=== PATIENT | male | born 1950 | race Caucasian/White ===

== ENCOUNTER 2021-03-18 10:51 | Outpatient (CLI) | payer MEDICARE, OTHER, SELFPAY ==
[2021-03-18 11:17] VITALS: BMI 30.1
--- NOTE | 2021-03-18 11:17 | ECG_ITS ---
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 Interpretive Statements NAME OF STUDY: TREADMILL STRESS TEST INDICATION: [Chest Pain, ] EXERCISE DATA: The patient was exercised by Thomas protocol. Baseline heart rate was 73 beats per minute. Baseline blood pressure was 157/83 millimeters of mercury. Target heart rate was 129 beats per minute. Maximum heart rate achieved was 143 which was 110% of the target heart rate. Maximum blood pressure was 253/68 millimeters of mercury. Total exercise time was 6 minutes and 36 seconds. Maximum METs achieved was 10.2, maximum VO2 was 35.7. The reason for ending the test was completion of the protocol. ELECTROCARDIOGRAM: BASELINE: Showed sinus rhythm, normal axis, no significant ST-T changes at the baseline noted. [] EXERCISE: At the peak exercise level, [] No significant ST-T changes suggestive of ischemia noted. [] RECOVERY: During the recovery period, heart rate dropped appropriately. No significant ST-T changes in the recovery suggestive of ischemia noted. [] CONCLUSION: 1. Exercise capacity excellent. 2. Heart rate response was appropriate. 3. Blood pressure response was hypertensive 4. Symptoms not suggestive of ischemia. 5. Stress test was not suggestive of ischemia. Electronically Signed On 03-26-2021 13:45:36 CDT by Niko Mcintosh M.D. [id number]
[2021-03-18 11:48] VITALS: BP 159/87; PULSE 87
== END 2021-03-18 10:52 | disposition home or self-care (01) ==
LOC: CDL 10:53
PROVIDERS: PCP Family Medicine; Visit Provider Family Medicine
DX: R07.9 Chest pain, unspecified (principal)
CPT/HCPCS: 93017

== ENCOUNTER 2021-09-16 14:24 | Outpatient (CLI) | payer MEDICARE, OTHER, SELFPAY ==
[2021-09-16 07:02] VITALS: BMI 30.1
[2021-09-16 14:34] VITALS: BP 149/80; PULSE 72; RESP 17; TEMP 36.4; O2SAT 96
[2021-09-16 15:28] VITALS: BP 123/71; PULSE 69; RESP 17; TEMP 36.8; O2SAT 94
[2021-09-16 16:28] VITALS: BP 123/72; PULSE 65; RESP 17; TEMP 36.6; O2SAT 96
== END 2021-09-16 14:25 | disposition home or self-care (01) ==
LOC: OPS 14:29
PROVIDERS: PCP Family Medicine; Visit Provider Nurse Practitioner Family
DX: U07.1 COVID-19 (principal)
CPT/HCPCS: 96365

== ENCOUNTER → 2022-01-06 09:23 | Outpatient (BNVA) | payer MEDICARE, OTHER, SELFPAY | PROVIDERS: PCP Family Medicine; Visit Provider Family Medicine | DX: Z51.81 Encounter for therapeutic drug level monitoring (principal); E78.1 Pure hyperglyceridemia; Z13.220 Encounter for screening for lipoid disorders; E03.9 Hypothyroidism, unspecified; N39.0 Urinary tract infection, site not specified | CPT/HCPCS: 80053; 80061; 83721; 84439; 84443; 85025; 85651; 86140; 87086 ==

== ENCOUNTER → 2022-01-15 10:49 | Outpatient (BNVA) | payer MEDICARE, OTHER, SELFPAY | PROVIDERS: PCP Family Medicine; Referring Provider Family Medicine; Visit Provider Surgery | DX: Z12.11 Encounter for screening for malignant neoplasm of colon (principal) | CPT/HCPCS: 99024 ==

== ENCOUNTER 2022-02-12 08:11 | Outpatient (CLI) | payer MEDICARE, OTHER, SELFPAY ==
--- NOTE | 2022-02-12 08:21 | US_ITS ---
WS: [id number] RENAL ULTRASOUND HISTORY: URINARY RETENTION COMPARISON: None available. TECHNIQUE: 2-D and color Doppler imaging of the kidney submitted. Right kidney: 10.1 cm x 4.9 cm x 5.1 cm. Normal echogenicity with no hydronephrosis or mass. Left kidney: 10.4 cm x 5.9 cm x 3.9 cm. Normal echogenicity with no hydronephrosis or mass. Aorta: Normal. Urinary Bladder: Normal distention. Moderately enlarged prostate measures 4.4 x 5.1 x 4.2 cm. No intraluminal filling defect. US/US renal BI* [id number] IMPRESSION: Normal renal ultrasound. Mild prostate enlargement.
== END 2022-02-12 08:12 | disposition home or self-care (01) ==
LOC: RAD 08:14
PROVIDERS: PCP Family Medicine; Visit Provider Family Medicine
DX: N40.1 Benign prostatic hyperplasia with lower urinary tract symptoms (principal); R33.8 Other retention of urine
CPT/HCPCS: 76770

== ENCOUNTER 2022-05-13 05:58 | Day surgery (SDC) | payer MEDICARE, OTHER, SELFPAY ==
[2022-05-11 09:11] VITALS: BMI 28.7
--- NOTE | 2022-05-13 06:08 | PM.HP ---
Providers/Chief Complaint Primary Care Provider: Gerardo Christian MD Chief Complaint: encounter for screening for malignant neoplasm of History of Present Illness Raimundo Chen is a 71 year old male here for a screening colonoscopy. Review of Systems General: Reports: 10 or more systems reviewed and unremarkable except in HPI and below Medications/Allergies Home Medications Medication Instructions Recorded Confirmed Last Taken Type atorvastatin 10 mg tablet 10 mg PO DAILY 05/11/22 05/11/22 05/11/22 History gemfibrozil 600 mg tablet 600 mg PO DAILY 05/11/22 05/11/22 05/11/22 History ibuprofen 200 mg tablet (Advil) 200 mg PO Q6H PRN Pain 05/11/22 05/11/22 Unknown History levothyroxine 125 mcg tablet 125 mcg PO DAILY 05/11/22 05/11/22 05/11/22 History omega-3 fatty acids 1,000 mg PO DAILY 05/11/22 05/11/22 05/11/22 History Allergies Allergy/AdvReac Type Severity Reaction Status Date / Time No Known Allergies Allergy Verified 09/16/21 18:06 Vitals/I&O/Wt Weight last 48 hrs Weight 200 lb A&P Assessment and plan (1) Colon cancer screening: Status: Acute Plan Colonoscopy The risks and benefits of the procedure, including bleeding, infection, intestinal perforation requiring surgery, missed lesion, or explained to the patient. He is understanding of the risks and wishes to proceed. Attestations Medical Necessity Statement*: home Coding Level of Care Code Acute Line Maintenance Technician for Shana Fwamelia Diagnoses Colon cancer screening Z12.11
[2022-05-13 06:30] VITALS: BP 143/78; PULSE 60; RESP 18; TEMP 36.2; O2SAT 97
[2022-05-13] MEDS: sodium chloride 0.9% 1,000 ML 30 ML IV (06:41)
--- NOTE | 2022-05-13 07:12 | ANES.PREANE2 ---
Pre-Anesthetic Assessment Height/Weight: Height 1.78 m Weight 90.718 kg Temp Pulse Resp BP Pulse Ox O2 Del Method 97.1 F L 60 18 143/78 97 05/13/22 06:30 05/13/22 06:30 05/13/22 06:30 05/13/22 06:30 05/13/22 06:30 05/13/22 06:30 Preop Diagnosis: Screening colonoscopy Operation Date: 05/13/22 07:30 Proposed Procedures p Colonoscopy 04304/z12.11(Not Applicable) - Dereck Mir DO Familial anesthetic complications: None Was Beta Jasiel taken within 24 hours: N/A Was Clonidine taken within 24 hours: N/A Last intake: Intake Last Liquid Date 05/12/22 Last Liquid Time 22:00 Last Solid Date 05/11/22 Last Solid Time 19:30 Social No alcohol and No tobacco Exam alert, oriented x 3, clear to auscultation bilaterally and regular rate & rhythm Airway Submandibular: within normal limits Cervical ROM: within normal limits Mallampati: Class I Dentition: other Comments: Comments: Upper removable bridge History/ROS No significant complaints Pulmonary None reported Per spouse of patient has occasional apnea at night, no loud snoring CV/HEM None reported None reported Hepatic None reported GI Gastroesophageal Reflux Disease (Well controlled ) Metabolic Hyperlipidemia and Thyroid Disease [facility] [place] reported Neuropsych None reported Anesthetic Plan ASA status: 2 Anesthesia: Anesthesia Evaluation and General Other: We discussed risk and benefits of general anesthesia including PONV, sore throat (sometimes severe), corneal abrasion, positioning and peripheral nerve injuries, life threatening allergic reaction, post operative ICU admission requiring prolonged intubation, stroke, heart attack, , and rare incidences of recall. Patient consents to proceed with general anesthesia. Risk of > 500 ml blood loss (7ml/kg in children): No Medications/Allergies Home Medications Medication Instructions Recorded Confirmed Last Taken Type atorvastatin 10 mg tablet 10 mg PO DAILY 05/11/22 05/11/22 05/11/22 History gemfibrozil 600 mg tablet 600 mg PO DAILY 05/11/22 05/11/22 05/11/22 History ibuprofen 200 mg tablet (Advil) 200 mg PO Q6H PRN Pain 05/11/22 05/11/22 Unknown History levothyroxine 125 mcg tablet 125 mcg PO DAILY 05/11/22 05/11/2222 History omega-3 fatty acids 1,000 mg PO DAILY 05/11/22 05/11/22 05/11/22 History Allergies Allergy/AdvReac Type Severity Reaction Status Date / Time No Known Allergies Allergy Verified 09/16/21 18:06 Current Medications Generic Name Dose Route Start Last Admin Trade Name Freq PRN Reason Stop Dose Admin Sodium Chloride 1,000 mls @ 30 mls/hr 05/13/22 06:30 05/13/22 06:41 Sodium Chloride 0.9% IV 05/14/22 06:29 30 mls/hr .Q24H RICARDO Administration Data Anesthesia Cardiac Studies: No Data to Display
[2022-05-13 08:10] VITALS: BP 121/70; PULSE 56; RESP 14; TEMP 36.2; O2SAT 96
[2022-05-13 08:21] VITALS: BP 123/74; PULSE 58; RESP 16; O2SAT 96
[2022-05-13 08:29] VITALS: BP 128/70; PULSE 50; RESP 16; O2SAT 98
--- NOTE | 2022-05-13 13:52 | ANE.PACU2 ---
Inpatient post-anesthesia follow up: Airway intact: Yes Vital signs: Temperature 97.2 F Pulse Rate 50 Respiratory Rate 16 Blood Pressure 128/70 Pulse Oximetry 98 Oxygen Delivery Me thod Room Air Oxygen Flow Rate Fraction of Inspir ed Oxygen Hydration adequate: Yes Nausea and vomiting: No Pain level: 1 Mental status: Baseline
== END 2022-05-13 08:45 | disposition home or self-care (01) ==
PROVIDERS: PCP Family Medicine; Visit Provider Surgery
PROC: 0DJD8ZZ Inspection of Lower Intestinal Tract, Via Natural or Artificial Opening Endoscopic (ICD-10-PCS; CPT 45378; principal; 2022-05-13 07:30)
DX: Z12.11 Encounter for screening for malignant neoplasm of colon (principal); D12.2 Benign neoplasm of ascending colon; K21.9 Gastro-esophageal reflux disease without esophagitis; E78.5 Hyperlipidemia, unspecified
CPT/HCPCS: 45385; 88305; J2704; J3490; J7030

== ENCOUNTER → 2022-05-26 13:54 | Outpatient (BNVA) | payer MEDICARE, OTHER, SELFPAY | PROVIDERS: PCP Family Medicine; Visit Provider Surgery | DX: Z09 Encounter for follow-up examination after completed treatment for conditions other than malignant neoplasm (principal); D36.9 Benign neoplasm, unspecified site | CPT/HCPCS: 99212 ==

== ENCOUNTER → 2022-05-29 08:50 | Outpatient (BNVA) | payer MEDICARE, OTHER, SELFPAY | PROVIDERS: PCP Family Medicine; Visit Provider Family Medicine | DX: Z00.00 Encounter for general adult medical examination without abnormal findings (principal); Z13.220 Encounter for screening for lipoid disorders; E78.5 Hyperlipidemia, unspecified; E03.9 Hypothyroidism, unspecified; Z51.81 Encounter for therapeutic drug level monitoring; E78.1 Pure hyperglyceridemia; H53.009 Unspecified amblyopia, unspecified eye | CPT/HCPCS: 80053; 80061; 84439; 84443; 85025 ==

== ENCOUNTER → 2023-11-23 07:57 | Outpatient (BNVA) | payer MEDICARE, OTHER, SELFPAY | PROVIDERS: PCP Family Medicine; Visit Provider Family Medicine | DX: E03.9 Hypothyroidism, unspecified (principal); E78.5 Hyperlipidemia, unspecified; Z13.220 Encounter for screening for lipoid disorders; Z51.81 Encounter for therapeutic drug level monitoring; R35.0 Frequency of micturition | CPT/HCPCS: 80053; 80061; 84153; 84439; 84443; 85025 ==

== ENCOUNTER 2024-09-13 15:14 | Outpatient (CLI) | payer MEDICARE, OTHER, SELFPAY ==
--- NOTE | 2024-09-13 15:28 | USCV_ITS ---
Raimundo Chen Age: 73 Gender: M : 1950 Exam Date: 09/13/2024 15:35 Ordering Phys: Leatha Richardson O.D. Technologist: ANDREA [place] [facility] [place]: Transient loss of vision Risk Factors: Previous Vascular Surgery: Right Brachial BP: / Left Brachial BP: / Right Left Velocity (cm/s) Spectral Plaque Velocity (cm/s) Spectral Plaque Syst/Diast Broadening Syst/Diast Broadening 92.90/ 17.10 Prox CCA 115.70/ 20.50 112.00/19.20 Mid CCA 103.70/ 24.90 71.90/ 21.00 Distal CCA 88.00 / 24.90 51.20/ 11.80 Prox ICA 49.00 / 13.30 50.10/ 10.60 Mid ICA 50.50 / 14.90 49.00/ 11.80 Distal ICA 74.80 / 21.80 120.50 ECA 95.70 0.70 ICA/CCA 0.60 Antegrade Vertebral Antegrade 29.40/ 6.80 cm/s 31.10/ 4.30 cm/s Tri Subclavian Tri 132.1 76.50 0 CONCLUSIONS Right ICA stenosis <50%. Mild atheromatous plaque right carotid bulb/ICA. Left ICA stenosis <50%. Mild atheromatous plaque left carotid bulb/ICA. Intimal thickening in the common carotid arteries and internal carotid arteries bilaterally. Normal antegrade Doppler flow noted in the right vertebral artery. Normal antegrade Doppler flow noted in the left vertebral artery. Jovi Dykes MD (Electronically Signed) Final Date: 13 September 2024 16:34 S
== END 2024-09-13 15:15 | disposition home or self-care (01) ==
LOC: RAD 15:19
PROVIDERS: PCP Family Medicine; Visit Provider Optometrist
DX: I65.23 Occlusion and stenosis of bilateral carotid arteries (principal); R93.89 Abnormal findings on diagnostic imaging of other specified body structures
CPT/HCPCS: 93880

== ENCOUNTER → 2024-10-10 09:48 | Outpatient (BNVA) | payer MEDICARE, OTHER, SELFPAY | PROVIDERS: PCP Family Medicine; Visit Provider Family Medicine | DX: E03.9 Hypothyroidism, unspecified (principal); N40.0 Benign prostatic hyperplasia without lower urinary tract symptoms; Z13.6 Encounter for screening for cardiovascular disorders; Z51.81 Encounter for therapeutic drug level monitoring | CPT/HCPCS: 80053; 80061; 84153; 84439; 84443; 85025 ==

== ENCOUNTER → 2024-10-24 13:52 | Outpatient (BNVA) | payer MEDICARE, OTHER, SELFPAY | PROVIDERS: PCP Family Medicine; Visit Provider Dermatology | DX: L82.1 Other seborrheic keratosis (principal); D22.5 Melanocytic nevi of trunk; L81.4 Other melanin hyperpigmentation; D48.5 Neoplasm of uncertain behavior of skin; L57.0 Actinic keratosis | CPT/HCPCS: 11102; 17000; 99203 ==

== ENCOUNTER → 2024-10-26 10:22 | Outpatient (BNVA) | payer MEDICARE, OTHER, SELFPAY | PROVIDERS: PCP Family Medicine; Visit Provider Family Medicine | DX: G45.3 Amaurosis fugax (principal) | CPT/HCPCS: 85651 ==

== ENCOUNTER 2024-10-27 11:21 | Emergency (ER) | payer MEDICARE, OTHER, SELFPAY ==
[2024-10-27] VITALS (8 sets, daily range): BP systolic 131–177; BP diastolic 74–90; PULSE 63–86; RESP 15–24; TEMP 37.1; O2SAT 94–99; BMI 30.1
--- NOTE | 2024-10-27 11:38 | ECG_ITS ---
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 Measurements Intervals [place] Rate: 74 P: 68 [place]: 160 QRS: 54 QRSD: 81 T: 77 QT: 370 QTc: 413 Interpretive Statements SINUS RHYTHM No previous ECG available for comparison Electronically Signed On 10-28-2024 07:43:57 [employer] by Niko Mcintosh M.D. [email or web address] [id number]
--- NOTE | 2024-10-27 11:38 | CT_ITS ---
WS: [id number] CT HEAD TECHNIQUE: Noncontrast CT of the head obtained from the skullbase to the vertex. CLINICAL INFORMATION: Symptoms of acute stroke COMPARISON: None. DLP: [address] scans at [facility] use at least one of these dose optimization techniques: automated exposure control; mA and/or kV adjustment per patient size (includes targeted exams where dose is matched to clinical indication); or iterative reconstruction. FINDINGS: No evidence of intracranial hemorrhage or mass effect. Ventricular system and basal cisterns are patent. Mild small vessel changes with mild parenchymal volume loss. No extra-axial fluid collections. No evidence of mass or mass effect. Vascular calcification. Dystrophic calcification along the falx. Paranasal sinuses and mastoid air cells are well aerated. .Normal visualized soft tissues. CT/CT head thrombolytic [id number] IMPRESSION: 1. No evidence of intracranial hemorrhage or mass effect. 2. No acute intracranial findings. Notified Yossi Willis DO at 10/27/2024 11:53 AM.
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
[2024-10-27 11:42] LABS: Glucose Point of Care 126 mg/dL (70-110)
--- NOTE | 2024-10-27 12:05 | PC.PHAR ---
Verified medications with [facility]. Will ask pt if he took morning meds when the room clears.
[2024-10-27 12:23] LABS: Basophils # 0.1 10^3/uL (0.0-0.1); Basophils % 0.9 %; Eosinophils # 0.2 10^3/uL (0.0-0.8); Eosinophils % 2.7 %; Hematocrit 46.1 % (37-53); Lymphocytes # 1.9 10^3/uL (0.8-4.8); Lymphocytes % 28.6 %; Mean Corpuscular HGB Conc 34.9 g/dL (30-55); Mean Corpuscular Hemoglobin 31.6 pg (27-33); Mean Corpuscular Volume 90.4 fl (82-101); Mean Platelet Volume 10.7 fL (7.4-10.4); Monocytes # 0.7 10^3/uL (0.2-0.9); Monocytes % 10.2 %; Neutrophils # 3.77 10^3/uL (1.8-7.7); Neutrophils % 57.3 %; Nucleated Red Blood Cells % 0 %; Platelet Count 180 10^3/cmm (157-399); Red Cell Distribution Width 12.1 % (12.1-15.1); White Blood Count 6.58 10^3/uL (3.29-11.43)
[2024-10-27 12:27] LABS: Add Urine Microscopic? NO
[2024-10-27 12:30] LABS: INR 1.04 (0.8-1.2)
[2024-10-27 12:31] LABS: Partial Thromboplastin Time 26.5 SECONDS (23.9-36.7)
[2024-10-27 12:34] LABS: Bilirubin Urine Negative (Negative); Blood Urine Non-haemolysed trace (Negative); Glucose Urine UA Negative (Normal); Ketones Urine Negative (Negative); Leukocyte Esterase Urine Negative (Negative); Nitrate Urine Negative (Negative); Protein Urine Negative (Negative); Specific Gravity, Urine 1.021 (1.005-1.030); Urine Appearance Clear (CLEAR); Urine Color Yellow (Yellow)
[2024-10-27 12:35] LABS: Alanine Aminotransferase 21 U/L (0-41); Albumin Level 4.2 g/dL (3.5-5.2); Alkaline Phosphatase 62 U/L (40-130); Anion Gap 15.2 (5-19); Aspartate Amino Transferase 19 U/L (0-40); Blood Urea Nitrogen 15 mg/dL (8-23); Calcium 9.4 mg/dL (8.5-10.5); Carbon Dioxide 23 mmol/L (22-29); Chloride 104 mmol/L (98-107); Creatinine Clr Calc Pharmacy 98.1113; Glucose 133 mg/dL (65-115); Osmolality Calculated 289 mOsm/kg (285-295); Potassium 4.2 mmol/L (3.5-5.1); Sodium 138 mmol/L (136-145); Total Bilirubin 0.4 mg/dL (0.15-1.2); Total Protein 7.2 g/dL (6.6-8.7)
[2024-10-27 12:38] LABS: Charge for UA Resulting for Rev
[2024-10-27 12:44] LABS: Amphetamines Screen Urine Negative (Negative); Barbiturates Screen Urine Negative (Negative); Benzodiazepines Screen Urine Negative (Negative); Cocaine Screen Urine Negative (Negative); Opiate Screen Urine Negative (Negative); PCP Screen Urine Negative (Negative); THC Screen Urine Negative (Negative)
[2024-10-27] MEDS: clopidogrel 75 mg Tablet PO (13:55)
== END 2024-10-27 13:50 | disposition home or self-care (01) ==
PROVIDERS: Emergency Provider Family Medicine; PCP Family Medicine
DX: G45.9 Transient cerebral ischemic attack, unspecified (principal); Z79.82 Long term (current) use of aspirin
CPT/HCPCS: 36416; 70450; 80053; 80306; 81003; 82962; 85025; 85610; 85730; 93005; 99284

== ENCOUNTER 2024-10-31 14:53 | Outpatient (CLI) | payer MEDICARE, OTHER, SELFPAY ==
--- NOTE | 2024-10-31 15:02 | XR_ITS ---
WS: [id number] XR cervical spine min 6V [id number] REASON FOR EXAM: cervical radiculopathy FINDINGS: Normal lordosis. No compression deformity or focal vertebral body lesion. Normal odontoid. Moderate anterior and posterior osteophytosis C2-C7. Mild narrowing of the C3-C4 disc space. No significant neutral listhesis. No significant vertebral body movement with flexion and extension. Mild narrowing of the neural foramina on the right at C4-C5 and C5-C6. XR/XR cervical spine min 6V [id number] IMPRESSION: Degenerative spondylosis of the cervical spine as above.
== END 2024-10-31 14:54 | disposition home or self-care (01) ==
LOC: RAD 14:55
PROVIDERS: PCP Family Medicine; Visit Provider Family Medicine
DX: M54.12 Radiculopathy, cervical region (principal); M47.892 Other spondylosis, cervical region; R93.7 Abnormal findings on diagnostic imaging of other parts of musculoskeletal system
CPT/HCPCS: 72052

== ENCOUNTER 2024-11-07 08:41 | Outpatient (CLI) | payer MEDICARE, OTHER, SELFPAY ==
--- NOTE | 2024-11-07 07:00 | USCV_ITS ---
Raimundo Chen Age: 73 Gender: M : 1950 Exam Date: 11/07/2024 09:08 Ordering Phys: Gerardo Christian MD Technologist: Exam Location: [facility] – [place] Indication: Amaurosis Fugax BP: 130 / 80 HR: 69 Rhythm: Sinus Technical Quality: Adequate MEASUREMENTS (Male / Female) Normal Values 2D ECHO LV Diastolic Diameter PLAX 3.9 cm 4.2 - 5.9 / 3.9 - 5.3 cm IVS Diastolic Thickness 1.3 cm 0.6 - 1.0 / 0.6 - 0.9 cm IVS Systolic Thickness 1.8 cm LVPW Diastolic Thickness 1.5 cm 0.6 - 1.0 / 0.6 - 0.9 cm LVPW Systolic Thickness 1.9 cm LVOT Diameter 2.0 cm LV Ejection Fraction 2D Teich 65.9 % LV Ejection Fraction MOD 4C 56.7 % LV Ejection Fraction MOD 2C 62.0 % LV Ejection Fraction 2C AL 61.6 % LA Diameter 3.5 cm RA Systolic Volume 4C AL 44.9 ml RA Systolic Volume 4C MOD 42.7 ml Aorta at Sinotubular Diameter 2.9 cm IVC Diameter 2.0 cm M-MODE LA Ao Ratio MM 1.3 AV Cusp Separation MM 2.0 cm DOPPLER AV Peak Velocity 122.0 cm/s LVOT Peak Velocity 111.0 cm/s AV Area Cont Eq vti 4.1 cm squared AV Area Cont Eq pk 3.0 cm squared MV Peak Velocity 87.0 cm/s MV Area PHT 3.2 cm squared Mitral E to A Ratio 0.9 TV Peak Velocity 158.0 cm/s TR Peak Velocity 162.0 cm/s TR Peak Gradient 10.5 mmHg TV Peak E Velocity 85.0 cm/s PV Peak Velocity 120.3 cm/s FINDINGS Left Ventricle Normal left ventricular size, systolic function and wall thickness, with no regional wall motion abnormalities. Left ventricular ejection fraction is estimated at 60 %. Grade I/IV diastolic dysfunction (abnormal relaxation filling pattern), normal to mildly elevated filling pressures. Right Ventricle The right ventricle is normal in size and function. Right Atrium The right atrium is normal in size. Left Atrium The left atrium is normal in size. Mitral Valve Mildly thickened mitral valve. No mitral valve stenosis. Trace mitral valve regurgitation. Aortic Valve Mild aortic valve calcification. No aortic valve stenosis. Trace aortic valve regurgitation. Tricuspid Valve Structurally normal tricuspid valve without significant stenosis or regurgitation. Pulmonary artery systolic pressure is normal. Pulmonic Valve Structurally normal pulmonic valve without significant stenosis. There is no pulmonic regurgitation. Pericardium Normal pericardium without effusion. Aorta Normal ascending aorta dimension. IVC The inferior vena cava appears normal. CONCLUSIONS Normal left ventricular size, systolic function and wall thickness, with no regional wall motion abnormalities. Left ventricular ejection fraction is estimated at 60 %. Grade I/IV diastolic dysfunction (abnormal relaxation filling pattern), normal to mildly elevated filling pressures. Mild aortic valve calcification. No aortic valve stenosis. Trace aortic valve regurgitation. There is no pericardial effusion. Right atrial pressure is around 5 mm of mercury. Angelo Crouch MD (Electronically Signed) Final Date: 16 November 2024 13:04 S
== END 2024-11-07 08:42 | disposition home or self-care (01) ==
LOC: RAD 08:42
PROVIDERS: PCP Family Medicine; Visit Provider Family Medicine
DX: G45.3 Amaurosis fugax (principal); R93.1 Abnormal findings on diagnostic imaging of heart and coronary circulation; I35.8 Other nonrheumatic aortic valve disorders
CPT/HCPCS: 93306

== ENCOUNTER 2024-11-10 14:41 | Outpatient (CLI) | payer MEDICARE, OTHER, SELFPAY ==
[2024-11-10] MEDS: iohexol 350 mg/mL 500 mL Btl (per mL) IV (14:44)
--- NOTE | 2024-11-10 15:00 | CT_ITS ---
WS: [id number] CTA HEAD TECHNIQUE: Contrast enhanced CTA of the head with coronal and sagittal reformatted images and maximum intensity projection (MIP) images. NASCET criteria utilized. CLINICAL INFORMATION: TIA COMPARISON: 10/27/2024 DLP: 1915.[address] scans at [facility] use at least one of these dose optimization techniques: automated exposure control; mA and/or kV adjustment per patient size (includes targeted exams where dose is matched to clinical indication); or iterative reconstruction. FINDINGS: No evidence intracranial hemorrhage or mass effect. Ventricular system and basilar cisterns are patent. Normal barrientos-white differentiation. Vascular calcification. No extra-axial fluid collections. Mild small vessel changes. Paranasal sinuses and mastoid air cells are well aerated. Normal posterior nasopharynx. Partially visualized left-sided chronic facial fractures INTRACRANIAL CTA: Dominant distal RIGHT vertebral artery. Basilar artery is patent. 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 Normal vascularity to the EVIDENCE TECHNICIAN territory bilaterally. Both ICAs are patent at the skull base. Mild cavernous carotid calcification. Small RIGHT A1 segment. Normal vascularity to the CASANDRA and MCA territories bilaterally. No evidence of proximal flow-limiting stenosis. CT/CT angio head [id number] IMPRESSION: 1. No evidence of proximal flow-limiting stenosis. 2. 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 3. No other acute findings.
== END 2024-11-10 14:42 | disposition home or self-care (01) ==
PROVIDERS: PCP Family Medicine; Visit Provider Family Medicine
DX: I65.23 Occlusion and stenosis of bilateral carotid arteries (principal); R93.0 Abnormal findings on diagnostic imaging of skull and head, not elsewhere classified
CPT/HCPCS: 70496

== ENCOUNTER 2024-11-20 07:44 | Outpatient (CLI) | payer MEDICARE, OTHER, SELFPAY ==
--- NOTE | 2024-11-20 08:00 | MR_ITS ---
WS: [id number] MRI CERVICAL SPINE NONCONTRAST HISTORY: Cervical radiculopathy left COMPARISON: Radiograph 10/31/2024 Technique: Multiplanar, multisequence noncontrast imaging of the cervical spine. Slight increase in the cervical lordosis. No acute fracture There is a small amount of reactive marrow edema in the RIGHT lateral C5 and C6 vertebral bodies. Mild disc disc space narrowing and desiccation. Signal within the cervical cord is normal. Visualized posterior fossa is unremarkable. Craniocervical junction, C1 and C2 relationship, odontoid process and soft tissues are normal. C2-C3: Mild annular disc bulging and osteophytic ridging. Slightly greater disc osteophyte complex on the LEFT. Mild facet arthritis. Minimal LEFT foraminal stenosis. C3-C4: Marked osteophytic ridging asymmetric to the LEFT. Bilateral foraminal disc osteophytes. There is osteophytic contact and deformity of the ventral thecal sac. Moderate central and RIGHT foraminal stenosis severe LEFT foraminal stenosis and mild facet arthritis. C4-C5: Mild annular disc bulging with a central disc protrusion. Very small foraminal osteophytes. Mild central stenosis. Mild facet arthritis. C5-C6: Mild annular disc disease with a central disc protrusion, osteophytic ridging and facet arthritis. Deformity of the ventral thecal sac by disc osteophyte disease. Mild central and bilateral foraminal stenosis. C6-C7: Diffuse annular disc bulging effacing ventral CSF. Moderate facet arthritis. Bilateral foraminal disc osteophyte disease. Mild central and bilateral foraminal stenosis, RIGHT greater than LEFT. C7-T1: No stenosis. T3-4: Disc osteophyte disease. There is a small disc osteophyte contacting the ventral thoracic cord. There is also mild anterior wedging of T3. Paraspinal soft tissue are normal. MR/MR cervical spin wo con* [id number] IMPRESSION: 1. Moderate degenerative cervical spondylosis. No acute cervical spine fractur e. 2. C3-4: Large vertebral osteophytes contact the thecal sac and cervical cord. Moderate central and RIGHT foraminal stenosis and severe LEFT foraminal stenos is due to disc and osteophyte disease. 3. C4-5: Small central disc protrusion. Mild central stenosis. 4. Mild central and bilateral foraminal stenosis due to disc and osteophyte di sease as above. 5. C6-7: Bilateral foraminal disc osteophyte disease. Mild central and bilater al foraminal stenosis, RIGHT greater than LEFT. 6. T3-4: Central disc protrusion contacts the ventral thoracic cord.
== END 2024-11-20 07:45 | disposition home or self-care (01) ==
PROVIDERS: PCP Family Medicine; Visit Provider Family Medicine
DX: M54.12 Radiculopathy, cervical region (principal); M47.892 Other spondylosis, cervical region; M25.78 Osteophyte, vertebrae; M48.02 Spinal stenosis, cervical region; M50.221 Other cervical disc displacement at C4-C5 level; M51.24 Other intervertebral disc displacement, thoracic region; M50.31 Other cervical disc degeneration, high cervical region; R93.7 Abnormal findings on diagnostic imaging of other parts of musculoskeletal system; M50.321 Other cervical disc degeneration at C4-C5 level; M50.222 Other cervical disc displacement at C5-C6 level; M50.323 Other cervical disc degeneration at C6-C7 level; M48.54XA Collapsed vertebra, not elsewhere classified, thoracic region, initial encounter for fracture
CPT/HCPCS: 72141

== ENCOUNTER → 2025-05-16 10:16 | Outpatient (BNVA) | payer MEDICARE, OTHER, SELFPAY | PROVIDERS: PCP Family Medicine; Visit Provider Family Medicine | DX: Z51.81 Encounter for therapeutic drug level monitoring (principal); Z00.00 Encounter for general adult medical examination without abnormal findings; E03.9 Hypothyroidism, unspecified; Z13.6 Encounter for screening for cardiovascular disorders; R73.09 Other abnormal glucose | CPT/HCPCS: 80053; 80061; 83036; 84439; 84443; 85025 ==